=== PATIENT | male | born 1970 | race American Indian/Alaskan Native ===

== ENCOUNTER 2017-03-21 05:44 | Day surgery (SDC) | payer OTHER ==
[2017-03-10 11:56] VITALS: BMI 33.0
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
--- NOTE | 2017-03-21 07:19 | CP.PCM.PN ---
Subjective - Date & Time of Evaluation Date of Evaluation: 03/21/17 Time of Evaluation: 07:10 - Subjective Subjective: 47 year old male patient PMHx of HTN seen in [facility] for pre-operative evaluation for left bunion surgery and excision of plantar fibroma by Dr. Truong today. Patient states he has had pain in his left bunion for yearsand has exhausted conservative treatment. Patient now opts for surgical intervention. NPO status confirmed. Patient is NAD and AAOx3, denies n/v/f/c/sob/cp. Objective - Vital Signs/Intake and Output Vital Signs (last 24 hours): Temp Pulse Resp BP Pulse Ox 97.8 F 50 L 18 136/89 98 03/21/17 06:31 03/21/17 06:33 03/21/17 06:31 03/21/17 06:31 03/21/17 06:31 - Constitutional Appears: Well, Non-toxic, No Acute Distress - Extremities Exam Additional comments: VASC: DP and PT pulses palpable 2/4 b/l. CFT <3 seconds to all digits x10. TG cool to cool. No edema noted. Hair growth appreciated NEURO: Gross sensation intact bilaterally DERM: Erythema noted to medial eminence b/l. Firm, nonmobile palpable soft tissue masses (x2) noted to plantar medial arch of left foot. No open lesions noted. Skin appears diffusely dry. ORTHO: Pain on palpation plantar soft tissue masses left foot (x2). Tenderness to palpation medial eminence left foot. Biomech: Patient presents with antalgic gait and abductory twist to LLE. Early heel off noted to left ankle. Patient has decreased ankle joint ROM, LLE greater than RLE. Ankle joint dorsiflexion to bilateral LE is < 10 degrees with knee flexed and extended without pain or crepitus noted. Muscle strength is 5/5 for all dorsiflexors, plantarfexors, inverters, and everters without pain or crepitus noted. STJ ROM is full B/L with 20 degrees inversion and 10 degrees eversion. LLE RCSP is 5 degrees everted with NCSP 0 degrees. RLE RCSP 5 degrees everted and NCSP neutral. ROM of MTJ is normal without pain or crepitus b/l. The forefoot is perpendicular to rearfoot b/l. First ray ROM is equal DF and PF b/l. 1st MPJ ROM is normal 65 degrees wihtout pain or crepitus b/l. Medial eminence noted b/l, L>R. Hallux is in a valgus position with tracking noted b/l. There are 2 palpable, firm, nonmobile mass noted to patient's left medial arch with pain on palpation. - Neurological Exam Neurological Exam: Alert, Awake, Oriented x3 - Psychiatric Exam Psychiatric exam: Normal Affect, Normal Mood Assessment and Plan - Assessment and Plan (Free Text) Assessment: 47 year old male PMHx HTN with left foot hallux valgus and painful plantar fibroma Plan: Pt was seen and examined in SDS Pt NPO status was confirmed Biomechanical and gait analysis performed All Pre-op testing and clearance was in the chart Pt has exhausted all conservative treatment at this time and is opting for surgical intervention Pt was explained procedure and post-operative course All pt's questions were answered to satisfaction No guarantees were made Pt understands all risks, benefits and complications of procedure Pt will follow-up with Dr. Butler
[2017-03-21] MEDS ORDERED: Bupivacaine 0.5% 50 ML IJ ONE (07:21)
[2017-03-21] MEDS ORDERED: Lidocaine 1% Inj (20ml) IJ ONE (07:21)
[2017-03-21] MEDS ORDERED: Sodium Chloride 0.9% 500 ML IV SCH (07:30)
[2017-03-21] MEDS ORDERED: ceFAZolin 1 GM in Sodium Chloride 0.9% 100 ML IVPB ONE (07:30)
[2017-03-21] MEDS ORDERED: Lidocaine 1% Inj (20ml) ONE (07:32)
[2017-03-21] MEDS ORDERED: Propofol 10 mg/ml Inj (20 ML) ONE (07:39)
[2017-03-21] MEDS ORDERED: Midazolam 2 MG/2 ML VIAL ONE (07:39)
[2017-03-21] MEDS ORDERED: Lactated Ringer's 1,000 ML IV ONE ×2 (08:25→09:44)
[2017-03-21] MEDS: Bupivacaine 0.5% Inj(30mL) ONE ×2 (08:35→09:41)
[2017-03-21] MEDS ORDERED: HYDROmorphone 0.5 mg/0.5 ml ISec IVP PRN (08:50)
--- NOTE | 2017-03-21 09:54 | PCM.SURG1 ---
Surgeon's Initial Post Op Note - Surgeon's Notes Surgeon: Dr. Truong, DPM Software Quality Tester: Lisa Petty PGY3, Rodger Limon PGY2 Type of Anesthesia: General LMA Anesthesia Administered By: Dr. Mayorga Pre-Operative Diagnosis: Left foot HAV and painful plantar fibroma Operative Findings: See operative report. Materials: Arthrex POW locking plate ; 3.0 x 24mm cortical screws (x2); 3.0 x 14 mm variable locking screws; 3.0 x 18mm cortical screws Post-Operative Diagnosis: Same as above Operation Performed: Left foot modified Colon, 1st metatarsal osteotomy, excision of plantar fibroma, repair of fascia Specimen/Specimens Removed: 1) bone left foot. 2) fibroma left foot Estimated Blood Loss: EBL {In ML}: 5 Blood Products Given: N/A Drains Used: No Drains Post-Op Condition: Good Date of Surgery/Procedure: 03/21/17 Time of Surgery/Procedure: 09:55
[2017-03-21] MEDS ORDERED: Oxycodone/Acetaminophen 5/325 mg Tab PO PRN ×2 (09:57)
[2017-03-21 10:55] VITALS: RESP 18
[2017-03-21 13:15] VITALS: BP 131/78; PULSE 55; TEMP 98.3; O2SAT 97
--- NOTE | 2017-03-21 16:30 | RAD ---
PROCEDURE: Left Foot Radiographs. HISTORY: s/p left foot surgery COMPARISON: None. FINDINGS: BONES: Status post osteotomy proximal 1st metatarsal. A plate and screw fixation device traverses the osteotomy defect. JOINTS: Normal. SOFT TISSUES: Normal. OTHER FINDINGS: None. IMPRESSION: Osteotomy and fixation proximal 1st metatarsal.
--- NOTE | 2017-03-21 22:19 | OP ---
PROCEDURE DATE: 03/21/2017 PREOPERATIVE DIAGNOSES: 1. Left foot hallux abductovalgus deformity. 2. Left foot plantar fibroma. POSTOPERATIVE DIAGNOSES: 1. Left foot hallux abductovalgus deformity. 2. Left foot plantar fibroma. PROCEDURES: 1. Modified Colon bunionectomy. 2. Proximal first metatarsal osteotomy, opening base wedge. 3. Excision of plantar fibroma, left foot. SURGEON: Tevin Truong DPM ASSISTANTS: Lisa Petty, PGY3 and Rodger Limon, PGY2. TYPE OF ANESTHESIA: General LMA. ANESTHESIA ADMINISTERED BY: Dr. Mayorga. INDICATIONS: The patient is a 47-year-old male with the above-mentioned diagnoses. The patient has exhausted conservative treatment at this time and is now requesting surgical intervention. The patient signed the consent. After careful explanation of risks, benefits, complications, and alternatives for the surgical procedure, no guarantees were given nor implied. Ancef 2 grams IV was given to the patient prior to the procedure. N.p.o. status was confirmed prior to taking the patient to the operating room. PREPARATION: The patient was brought to the operating room and placed on the operating room table in supine position. A well-padded pneumatic thigh tourniquet was placed to the patient's left thigh. After induction of sedation, the left side was prepped and draped in the usual sterile manner and the procedure began. PROCEDURE #1: Modified Colon bunionectomy. Attention was directed to the first metatarsophalangeal joint of the left foot where an approximately 7 cm linear longitudinal incision was created, starting at the first metatarsophalangeal joint and extending proximally just distal to the first metatarsal cuneiform joint. The incision was deepened through the subcutaneous tissues using sharp and blunt dissection. Care was taken to identify and retract all vital neurovascular structures. All bleeders were cauterized and ligated as necessary. Attention was then directed to the first inner space via the original incision where the tendon of the extensor hallucis brevis was identified and tenotomized. Dissection was continued deep using blunt dissection down to the level of the fibular sesamoid, which was freed and the soft tissue attachments proximally, laterally, and distally. The conjoint tendon of the adductor hallucis muscle was then identified and transected out of its attachments to the base of proximal phalanx of the hallux. At this time, the lateral contracture present on the hallux was noted to be reduced, and the sesamoid apparatus was noted to float into a more corrected medial position. At this time, a linear capsulotomy was performed over the dorsal aspect of the first metatarsophalangeal joint. The periosteal and capsular structures were carefully dissected free of their osseous attachments and reflected medially and laterally, thus exposing the head of the first metatarsal into the operative site. Next, utilizing a sagittal bone saw, the dorsal and medial prominences were resected and passed from the operative field. The wound was copiously irrigated with normal sterile saline. The incision was closed using 2-0 Vicryl for the capsular structures, 4-0 Vicryl for subcuticular closure and 4-0 Prolene for the skin. PROCEDURE #2: Left first metatarsal opening base wedge osteotomy. Attention was directed to the more proximal aspect of the initial incision, overlying the proximal aspect of the first metatarsal. Using a ruler, 1.5 cm was measured proximal to the first metatarsal cuneiform joint and an osteotomy was created from medial to lateral, perpendicular to the weightbearing surface and not violating the lateral cortex of the first metatarsal bone. The incision was carefully opened using a small osteotome and instruments from the Arthrex set. Once the osteotomy was opened allowing for proper correction of the deformity, the sizer from the Arthrex set was inserted into the osteotomy site to measure the size of the plate to use. A #4 plate was selected from the Arthrex locking set. The plate was secured to the bone initially using . Next, the drill guide was used and the 3-0 drill was drilled bicortically in both of the proximal holes. Two 3.0 x 24 mm non-locking screws were inserted in the 2 proximal holes. Next, the first distal hole was drilled using the locking guide and the 3-0 drill bit. Next, a 3.0 x 14 mm locking screw was inserted in this hole. Finally, the most distal hole was drilled using the 3-0 drill bit and a 3.0 x 18 mm cortical screw was inserted into this hole. Positioning of the metatarsal and hardware was checked under fluoroscopy and was noted to be in the correct position. Next, the wound was copiously irrigated with normal sterile saline and Synthes bone substitute was injected into the void created in the medial aspect of the metatarsal. Next, the periosteal and capsular structures were reapproximated and coapted using 3-0 Vicryl. Subcuticular closure was done using 4-0 Vicryl and skin was closed using 4-0 Prolene. PROCEDURE #3: Excision of plantar fibroma of the left foot: Attention was directed to the plantar aspect of the left foot where a small soft tissue mass was noted. Using a #15 blade, a curvilinear incision was created overlying the central aspect of the lesion. The incision was deepened through the subcutaneous tissues with care being taken to identify and retract all vital neurovascular structures. All bleeders were cauterized and ligated as necessary. At this time, a hemostat was used to carefully separate the mass from the overlying skin. Next, Troy scissors were utilized to dissect the soft tissue mass out from underneath the remaining soft tissues. Once the mass was mobilized, the soft tissue attachments were cut using the Troy scissors. The mass was removed and passed from the operative field and sent for pathology. The wound was copiously irrigated with normal sterile saline. The deep fascia was reapproximated and coapted using 2-0 Vicryl, subcuticular closure was done using 4-0 Vicryl and skin was closed using 3-0 Prolene. Following the procedure, a total of 30 mL of 0.5% Marcaine plain were injected in the local block fashion to the left foot. The foot was dressed using Xeroform, 4 x 4's, and Kerlix and a posterior splint was applied to the left lower extremity. POSTOPERATIVE CONDITION: The patient tolerated the anesthesia and procedure well and was escorted to the recovery room with vital signs stable and neurovascular status intact to the left foot. This patient will follow up with Dr. Truong in his office next week. Lisa Petty DPM Sheryl Yee M.D. (Tevin Truong DPM)
== END 2017-03-21 14:02 | disposition home or self-care (01) ==
LOC: H.OPSURG 05:44
PROVIDERS: ATTEND Podiatrist Foot & Ankle Surgery
DX: M20.22 Hallux rigidus, left foot (principal); M72.2 Plantar fascial fibromatosis; M13.872 Other specified arthritis, left ankle and foot
CPT/HCPCS: 11420; 28750; 73630; 88304; 97161; C1713; G8978; G8979; G8980; J0690; J2001; J2250; J2704; J2765; J3010; J7030; J7120